=== PATIENT | female | born 1985 | race African-American/Black ===

== ENCOUNTER 2022-09-12 15:09 | Emergency (ER) | payer OTHER ==
[2022-09-12 15:17] VITALS: BMI 28.0
[2022-09-12] MEDS ORDERED: SODIUM CHLORIDE 1,000 ML IV STA (16:01)
[2022-09-12] MEDS ORDERED: morphine CARPU-JECT 4 MG/1 ML DISP.SYRIN IVPUSH ONE (16:01)
[2022-09-12] MEDS ORDERED: ONDANSETRON 4 MG/2 ML VIAL IVPUSH ONE (16:01)
[2022-09-12] MEDS ORDERED: morphine SULFATE 4 MG/ML VIAL ONE (16:29)
[2022-09-12] MEDS ORDERED: ONDANSETRON 4 MG/2 ML VIAL ONE (16:29)
[2022-09-12 17:04] LABS: BASO % 0.2 % (0-2.0); HEMOGLOBIN 10.4 GM/dL (10.7-15.3); LYMPH % 3.2 % (8-40); MCH 32.4 pg (25.7-33.7); MCHC 34.7 g/dl (32.0-36.0); MEAN CELL VOLUME 93.5 fl (80-96); MEAN PLT VOLUME 8.4 fl (7.5-11.1); MONO % 2.7 % (3.8-10.2); NEUT % 93.9 % (42.8-82.8); PLATELET COUNT 280 10^3/uL (134-434); RBC 3.21 M/mm3 (3.60-5.2); RDW 13.7 % (11.6-15.6); WHITE BLOOD COUNT 10.7 K/mm3 (4.0-10.0)
[2022-09-12 17:07] LABS: EPI CELLS 30 /uL (0-25.1); HYALINE CASTS 3 /uL (0-3.1); PH,URINE 8.5 (5.0-8.0); URINE APPEARANCE TURBID; URINE BACTERIA >9,000 /uL (0-1359); URINE BILIRUBIN NEGATIVE (NEGATIVE); URINE COLOR YELLOW; URINE GLUCOSE (UA) NEGATIVE (NEGATIVE); URINE KETONE NEGATIVE (NEGATIVE); URINE LEUK ESTERASE 3+ (NEGATIVE); URINE NITRITE NEGATIVE (NEGATIVE); URINE PROTEIN 2+ (NEGATIVE); URINE RBC 154 /uL (0-23.9); URINE WBC 5018 /uL (0-25.8)
[2022-09-12 17:08] LABS: HCG,QUALITATIVE URINE Negative
[2022-09-12 17:33] LABS: ALBUMIN 2.8 g/dl (3.4-5.0); BLOOD UREA NITROGEN 12.8 mg/dL (7-18); CALCIUM 8.4 mg/dL (8.5-10.1)
[2022-09-12 17:36] LABS: CREATININE 0.8 mg/dL (0.55-1.3)
[2022-09-12 17:38] LABS: BILIRUBIN,TOTAL 1.2 mg/dL (0.2-1); TOT PROT 6.6 g/dl (6.4-8.2)
[2022-09-12 18:15] LABS: PLATELET ESTIMATE ADEQUATE
[2022-09-12 18:29] VITALS: TEMP 98.6
[2022-09-12] MEDS ORDERED: TAMSULOSIN HCL 0.4 MG CAP PO ONE (19:07)
[2022-09-12] MEDS ORDERED: KETOROLAC TROMETHAMINE 30 MG/1 ML VIAL IVPUSH ONE (19:07)
[2022-09-12] MEDS ORDERED: TAMSULOSIN HCL 0.4 MG CAP ONE (20:33)
[2022-09-12] MEDS ORDERED: KETOROLAC TROMETHAMINE 30 MG/1 ML VIAL ONE (20:33)
[2022-09-12 21:35] VITALS: BP 127/77; PULSE 81; RESP 18
== END 2022-09-12 21:35 | disposition home or self-care (01) ==
LOC: JER 15:09
PROC: 3E033GC Introduction of Other Therapeutic Substance into Peripheral Vein, Percutaneous Approach (ICD-10-PCS; principal; 2022-09-12)
DX: N13.2 Hydronephrosis with renal and ureteral calculous obstruction (principal); N39.0 Urinary tract infection, site not specified
CPT/HCPCS: 36415; 74176-TC; 80053; 81003; 84703; 85025; 87086; 87186; 99285-25; C9803-CS; U0003; U0005